=== PATIENT | male | born 2000 | race Caucasian/White ===

== ENCOUNTER 2021-06-13 15:54 | Emergency (ER) | payer OTHER, SELFPAY ==
[2021-06-13 15:59] VITALS: BP 126/74; PULSE 102; RESP 16; TEMP 36.8; O2SAT 98
--- NOTE | 2021-06-13 16:01 | ED.GENADUL_ITS ---
Discharge Plan Disposition Patient Disposition: HOME Condition: Good Discharge Details Clinical Impression: Acute shoulder pain Primary Care Provider: Bob Valencia ED Provider: Anushka Carcamo Home Meds and New Rx's Prescriptions: No Action No Known Home Meds RF: 0 Discharge Instructions Instructions: Shoulder Pain (ED) Additional Instructions: Your exam and imaging are reassuring today. Please encourage rest, ice, elevation. Tylenol and/or ibuprofen as needed for discomfort. Please avoid any heavy lifting while pain persist. Avoid activities that cause increased discomfort. If you develop fever/chills, increased pain or other new/worsening symptoms please seek care urgently once again. Otherwise, please follow-up with primary care in 2 weeks for reevaluation. Referrals: Bob Valencia, [facility] [Primary Care Provider] - Discharge Data Discharge Date/Time-TO BE ENTERED AT DEPARTURE: 06/13/21 18:26 Medical Decision Making Patient is a pleasant 20-year-old [id number]-xhnzybbl male presenting today with chief complaint of left shoulder pain. 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 After sitting down, noted some left anterior shoulder pain. Denies numbness or tingling. No known trauma. No previous issues with this shoulder. On exam, patient appears nontoxic. He has full range of motion of the left shoulder. Neer, Ashraf, Speed all without abnormality. 2+ distal pulses, neurovascularly intact. Axial nerve testing intact. No bony abnormality noted. No Amadou deformity. Patient minimal nonfocal discomfort anteriorly. Will give Tylenol and ibuprofen to help with discomfort. We did discuss risk and benefit of imaging. I have very low suspicion for bony abnormality. Patient would prefer to move forward with x-ray at this time. FINDINGS: Bones/joints: Scapular Y-view positioning is suboptimal. The humeral head may be slightly subluxed anteriorly. No displaced fracture. Soft tissues: Normal. IMPRESSION: Question mild anterior subluxation of the glenohumeral joint This does not correlate with patient's history or clinical exam findings. Will encourage rest, ice, elevation. Tylenol and ibuprofen as needed for discomfort. Abstain from activities that cause increased discomfort. Follow-up with primary care in 2 weeks for reevaluation. Return precautions discussed. His pain is improved after Tylenol and ibuprofen. All questions concerns were addressed and he is agreement this plan. HPI General Mode of arrival: ambulatory . Date/Time Provider Initiated Documentation: 06/13/21 16:01 . Limitations to Documentation: no limitations . Information obtained by: patient and RN notes reviewed . History of Present Illness 20 year old M presents to the emergency department with the chief complaint of left shoulder pain, described as moderate, with intensity rated at 6. Quality is described as aching, and is localized to the left. Patient reports no radiation. Related Data Home Medications Medication Instructions Recorded Confirmed Unknown [No Known Home Meds] 09/15/19 06/13/21 Allergies Allergy/AdvReac Type Severity Reaction Status Date / Time No Known Allergies Allergy Verified 05/26/21 15:01 Review of Systems Constitutional Constitutional: Reports as per HPI, Denies chills, Denies fever(s), Denies headache(s) and Denies weakness ENT Ears, Nose, Mouth, and Throat: Denies headache(s) Cardiovascular Cardiovascular: Reports as per HPI Respiratory Respiratory: Reports as per HPI and Denies cough Musculoskeletal Musculoskeletal: Reports as per HPI and Denies tingling Integumentary/Breasts Skin/Breast: Reports as per HPI, Denies rash and Denies wounds Neurologic Neurologic: Reports as per HPI, Denies headache(s), Denies tingling, Denies paresthesias and Denies weakness [facility] Medical History (Updated 06/13/21 @ 17:11 by JOE Allen) ADHD (attention deficit hyperactivity disorder) Developmental delay iep Surgical History Circumcision Family History (Updated 04/06/21 @ 09:27 by Lorena Kyle) Mother Mental disorder Asthma Father Diabetes Sister No problems noted. Sister No problems noted. Sister No problems noted. Social History Smoking/Tobacco Use Status: Never Second Hand Exposure: Yes Smoking risk assessment performed?: Yes Alcohol Intake: never Drug use: Never Substance use type: does not use Caregiver/Support person: Yes (Father) Household members: family Housing: house Education Level: high school Details: Senior--[employer] Do you need help understanding health information?: Often Pets and animals: Yes Pets and animals: cat(s) and dog(s) Sexually active: No Do you think of yourself as: straight/heterosexual Current gender identity: male How often do you talk on the phone with friends or family?: three or more times per week How often do you get together with friends or relatives?: once per week How often do you attend advent or mandaeism services?: decline to answer Do you belong to any clubs or organized social groups?: no Panel score (0-1 are the most socially isolated patients): 1 What type of physical activity do you participate in: weight lifting Duration: 15-30 minutes/day Frequency: 1-2 times per week Meg/Pentecostal: No preference Special meg needs: No Seatbelt use: always Helmet use: No 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 Working smoke detector in home: Yes Fire extinguisher in home: Yes Carbon monox detector in home: Yes Do you feel safe at home: Yes Do you feel safe in your relationship?: Yes Exam Const General: cooperative, healthy appearing, comfortable, no acute distress, well developed and well groomed Nutritional Appearance: average body habitus and well nourished Orientation: alert and awake Resp Effort & Inspection: normal respiratory effort, able to speak in complete sentences and no respiratory distress Cardio Rate: regular rate Rhythm: regular rhythm Skin General skin exam: no rashes or lesions noted Lesions: no lesions Rashes: no rashes Trauma: no lacerations or abrasions Neuro General: patient alert and patient awake Cognition: normal cognition Speech: speech normal Gait: normal gait Motor: muscle tone normal throughout Sensory Exam: no sensory deficits noted Extrem Left upper extremity: normal to inspection, full ROM, normal capillary refill, no joint enlargement, shoulder/upper arm Details: inspection abnormal, tenderness (anteriorly), axillary nerve sensory function normal and normal ROM; no swelling, no ecchymosis, no crepitus, no deformity and no unsual warmth and elbow/forearm Details: normal to inspection, normal ROM and distal pulses intact; no tenderness and no swelling; no cyanosis and no edema Psych Appearance: grossly normal and well kempt Mental Status: mental status grossly normal Speech and Movement: speech and movement normal
--- NOTE | 2021-06-13 16:15 | DI.RAD_ITS ---
Exam(s) XR SHOULDER LT COMPLETE 2+V EXAM: XR SHOULDER LT COMPLETE 2+V CLINICAL HISTORY: overuse injury, anterior pain. TECHNIQUE: 2D digital imaging was performed. COMPARISON: No exams were available for comparison FINDINGS: There is no evidence of fracture or dislocation or abnormal soft tissue calcifications. AC joint is not distracted. Subtle area of lucency in the greater trochanter is noted measuring approximately 2. 7 x 2.3 cm. This is nonexpansile. However, there is no sclerotic edge. Osseous glenoid unremarkabl e. AC joint unremarkable. IMPRESSION: There is an area of lucency in the greater trochanter. Possibly within normal limits but recommend f ollow-up MRI. DATA REPOSITORY: RADIATION DOSE DELIVERED:
[2021-06-13] MEDS: Acetaminophen 325 MG TAB 650 MG PO (16:32)
[2021-06-13] MEDS: Ibuprofen 600 MG TAB PO (16:33)
--- NOTE | 2021-06-13 17:05 | DI.VRAD_ITS ---
PROCEDURE INFORMATION: Exam: XR Left Shoulder Exam date and time: 06/13/2021 4:28 PM Age: 20 years old Clinical indication: Patient HX: Left shoulder pain TECHNIQUE: Imaging protocol: XR Left shoulder. Views: 2 or more views. COMPARISON: No relevant prior studies available. FINDINGS: Bones/joints: Scapular Y-view positioning is suboptimal. The humeral head may be slightly subluxed anteriorly. No displaced fracture. Soft tissues: Normal. IMPRESSION: Question mild anterior subluxation of the glenohumeral joint Dictated and Authenticated by: Doron Quiroz MD. Ordering:KYRIE Reveles MD
== END 2021-06-13 18:26 | disposition home or self-care (01) ==
PROVIDERS: Emergency Provider Physician Assistant; PCP Nurse Practitioner Family
DX: M25.512 Pain in left shoulder (principal); X50.0XXA Overexertion from strenuous movement or load, initial encounter; X50.3XXA Overexertion from repetitive movements, initial encounter; Y99.0 Civilian activity done for income or pay
CPT/HCPCS: 99283; 73030

== ENCOUNTER 2022-01-09 19:18 | Outpatient (REF) | payer MEDICAID, SELFPAY ==
[2022-01-17 08:13] LABS: Fungus Smear No Fungi Seen
== END 2022-01-09 19:19 | disposition home or self-care (01) ==
LOC: LBN 19:18
PROVIDERS: PCP Nurse Practitioner Family; Visit Provider Family Medicine
DX: K14.6 Glossodynia (principal)
CPT/HCPCS: 87102; 87206

== ENCOUNTER 2024-01-22 01:53 | Observation (INO) | payer MEDICAID, SELFPAY ==
[2024-01-22] VITALS (22 sets, daily range): BP systolic 92–154; BP diastolic 40–96; PULSE 67–88; RESP 15–19; TEMP 36.6–37.3; O2SAT 95–100; BMI 25.5
[2024-01-22 02:38] LABS: Abs Immature Grans 0.05 10^3/uL (0.0-0.06); Absolute Eosinophil Count 0.86 10^3/uL (0.0-0.7); Absolute Lymphocyte Count 3.41 10^3/uL (1.2-3.4); Absolute Monocyte Count 1.01 10^3/uL (0.1-0.8); Absolute Neutrophil Count 8.67 10^3/uL (1.2-6.7); Basophils % 0.6; Eosinophils % 6.1; HCT 46.8 % (40.0-50.0); HGB 16.4 g/dL (13.5-17.5); Immature Grans % 0.4; Lymphocytes % 24.2; MCH 29.4 pg (27.0-33.0); MCV 84 fL (80-95); MPV 11.3 fL (8.0-11.0); Monocytes % 7.2; Neutrophils % 61.5; Platelet Count 271 10^3/uL (130-400); RBC 5.58 10^6/uL (4.36-5.78); RDW 12.4 % (11.8-14.1); RDW-SD 37.5 fL; WBC 14.09 10^3/uL (4.4-10.8)
[2024-01-22 02:39] LABS: Absolute Basophil Count 0.08 10^3/uL (0.0-0.2)
[2024-01-22 02:41] LABS: Lactate 1.6 mmol/L (0.6-1.4)
[2024-01-22 02:47] LABS: Bilirubin Negative (Negative); Blood Negative (Negative); Clarity Clear (Clear); Glucose Negative (Negative); Ketones Negative (Negative); Leukocyte Esterase Negative (Negative); Nitrite Negative (Negative); Specific Gravity 1.025 (1.005-1.025); Urobilinogen 0.2 mg/dL (Up to 0.2)
[2024-01-22] MEDS: Normal Saline 1,000 ML 1000 ML IV (02:47)
--- NOTE | 2024-01-22 02:50 | ED.GENADUL_ITS ---
Discharge Plan Disposition Patient Disposition: Admit to [facility] Condition: Stable Discharge Details Clinical Impression: Acute appendicitis Admit Date/Time: 01/22/24 07:07 Admit Provider: Jaguar Mena Attending Provider: Jaguar Mena Primary Care Provider: Bob Valencia ED Provider: Obdulia Cooney Discharge Data Discharge Date/Time-TO BE ENTERED AT DEPARTURE: 01/22/24 07:27 Discharge Physician: Obdulia Cooney HPI General Mode of arrival: ambulatory . Date/Time Provider Initiated Documentation: 01/22/24 02:28 . Limitations to Documentation: other (Developmental delay) . Information obtained by: patient, family, RN notes reviewed and old records reviewed . HPI Narrative: Time seen was 2:50 AM in bed 7. The patient is a healthy 23-year-old with mild developmental delay who presents with right lower quadrant pain. The pain began about 5 hours prior to arrival. He states he was fine all day. The last thing he ate was bologna cheese and mayonnaise sandwich at 4 PM yesterday. He describes the pain as constant sharp and nonradiating. It was initially 7 out of 10 at triage but has increased to 9 out of 10. He is accompanied by his mother who offered him ibuprofen prior to arrival but he declined. He denies any change in his appetite. He did have some diarrhea the day before and his father gave him [id number] Imodium which helped. His last bowel movement was at 11 PM last night (after the pain had started), and he states it was normal. He denies any nausea or vomiting. He denies any dysuria or penile discharge. He has no prior history of abdominal surgeries. He does state that the pain is worse with movement and ambulation. No prior abdominal surgeries. Initially pain was 8 out of 10 located in the right lower quadrant without radiation. The patient is constant and aggravated by movement. Related Data Home Medications Medication Instructions Recorded Confirmed Unknown [No Known Home Meds] 09/15/19 01/22/24 Allergies Allergy/AdvReac Type Severity Reaction Status Date / Time No Known Allergies Allergy Verified 01/22/24 02:17 General Stated Complaint: Abd Prob JOSE: 3 Review of Systems Narrative: see hpi Exam Narrative Exam Narrative: The patient is a well-developed well-nourished male who walked in a slightly bent over holding his right lower quadrant. He appears to have some mild cognitive delay but answers questions appropriately. He is mildly hypertensive. He is not tachycardic tachypneic or febrile. He has a normal room air O2 sat of 99%. Const General: cooperative, healthy appearing, comfortable, no acute distress, well developed, well groomed and well hydrated Nutritional Appearance: average body habitus and well nourished Orientation: alert, awake and oriented x3 HENMT Head: normal to inspection, normocephalic and atraumatic Ears: hearing grossly normal bilaterally and external ears normal General nose exam: external nose normal, nares normal and no nasal discharge Face and sinus: normal facial exam, sinuses nontender and face symmetric Mouth: oral mucosae normal, lip normal, tongue normal, oropharynx normal, moist mucous membranes and other (Normal phonation. The patient is handling secretions.) Throat: posterior oropharynx normal and uvula midline Eyes General: appearance normal, both eyes and all related structures Eyelids: eyelids normal Conjunctivae: conjunctivae normal Sclera: sclerae normal Cornea: corneas normal Pupils: PERRL EOM: EOM intact bilaterally and No nystagmus Neck Neck: normal visual inspection, full ROM, no lymphadenopathy, no meningeal signs, trachea midline and supple Lymphatic: no lymphadenopathy noted Chest Chest: normal inspection of the chest Resp Effort & Inspection: normal respiratory effort, able to speak in complete sentences, no audible wheezes, no nasal flaring, no respiratory distress, no retractions, no stridor, not tachypneic, no tracheal deviation, no use of accessory muscles, No prolonged expiratory phase and other (Normal inspiratory to expiratory ratio.) Auscultation: clear to auscultation bilaterally, no rales, no rhonchi, no wheezes and no rubs Tactile Fremitus: tactile fremitus absent Cardio Jugular venous pressure: no JVD Palpation: normal PMI Rate: regular rate Rhythm: regular rhythm Heart Sounds: S1 normal, S2 normal, no gallops, no murmurs and no rubs Pulses: normal peripheral pulses GI Inspection: normal to inspection, no abdominal wall ecchymosis, non-distended, no incisions, no visible herniation, no visible pulsation and No visible peristalsis Palpation: soft, no hepatosplenomegaly, no guarding, no pulsatile masses and tender in the RLQ, at McBurney's point, with rebound tenderness and Rovsing's sign positive; obturator sign negative and psoas sign negative Auscultation: normal bowel sounds General: No CVA tenderness Male General Exam: Yes normal external exam Penis: normal penis Scrotum: scrotum normal Testes: normal Other: No hernias Back/Spine/Pelvis Back: no CVA tenderness and No back tenderness Cervical Spine: normal cervical lordosis, cervical ROM normal, No cervical muscular tenderness, No pain with cervical ROM, No cervical spinal tenderness and No step off deformity Thoracic/Lumbar Spine: thoracic and lumbar spine normal to inspection, No thoracic spinal tenderness and No lumbar spinal tenderness Pelvis: no pain with anterior-posterior compression and no pain with lateral compression Skin General skin exam: no rashes or lesions noted, turgor normal, no petechiae, no purpura and other (Skin is normal for ethnicity.) Lesions: no lesions Rashes: no rashes Trauma: no lacerations or abrasions Neuro General: patient alert, patient awake, patient oriented x3, moves all extremities, no meningeal signs, no focal motor deficits and CN's II-XI intact bilaterally Cranial Nerves: CN's II-XI intact bilaterally, PERRL, accommodation normal, EOM intact bilaterally, no nystagmus, facial strength normal, tongue midline, hearing normal and no nystagmus Cognition: normal cognition Speech: speech normal Motor: muscle tone normal throughout and strength 5/5 throughout Sensory Exam: no sensory deficits noted Pupils: Normal pupillary reactivity/response: bilateral Extrem General: normal to inspection, full ROM, capillary refill normal, no clubbing, cyanosis or edema and no calf tenderness Psych Appearance: grossly normal Affect: normal affect Attitude: cooperative Thought Process: normal Thought Content: normal Insight: insight good Judgment: judgment good Other: The patient appears to have capacity make medical decisions. Course 4:45 AM I have notified the patient and his mother as well as the surgeon, Dr. Lee of the patient's diagnosis of appendicitis. I have updated the patient. She is checking with the OR. She requested that he receive morphine for additional analgesic. I will start with 2 mg of IV morphine. Zofran was ordered prior to CT scan. The patient and his mother voiced understanding and agreement with plan to admit and anticipate appendectomy. The patient has been kept n.p.o. on IV fluids. Due to voice recognition software, sound alike and misspelled words may be contained in the documentation. Consultations Consultation #1: Dr. Lee general surgery please see above. Vital Signs Vital signs: Vital Signs Temperature 36.6 C 01/22/24 02:10 Pulse 88 01/22/24 02:10 Respiratory Rate 18 01/22/24 02:10 Blood Pressure 154/96 H 01/22/24 02:10 Pulse Oximetry 99 01/22/24 02:10 Temperature 36.6 C 01/22/24 02:10 Temperature Source Oral 01/22/24 02:10 Pulse 88 01/22/24 02:10 Respiratory Rate 18 01/22/24 02:10 Respiratory Effort Normal, Non-Labored 01/22/24 02:15 Blood Pressure 154/96 H 01/22/24 02:10 Blood Pressure Position Sitting 01/22/24 02:10 Pulse Oximetry 99 01/22/24 02:10 Oxygen Delivery Method Room Air 01/22/24 02:10 Oxygen Flow Rate 0 01/22/24 02:10 Pain Level 7 01/22/24 02:14 Lab/Test Results Lab/Test Results: Laboratory Tests Range/Units 01/22/24 02:28 WBC (4.4-10.8) 10^3/uL 14.09 H RBC (4.36-5.78) 10^6/uL 5.58 Hgb (13.5-17.5) g/dL 16.4 Hct (40.0-50.0) % 46.8 MCV (80-95) fL 84 MCH (27.0-33.0) pg 29.4 MCHC (32.0-36.0) % 35.0 RDW (11.8-14.1) % 12.4 Plt Count (130-400) 10^3/uL 271 MPV (8.0-11.0) fL 11.3 H Immature Gran % 0.4 Neutrophils % 61.5 Lymphocytes % 24.2 Monocytes % 7.2 Eosinophils % 6.1 Basophils % 0.6 Nucleated RBC % (0.0-0.3) % 0.0 Absolute Neutrophils (1.2-6.7) 10^3/uL 8.67 H Absolute Lymphocytes (1.2-3.4) 10^3/uL 3.41 H Absolute Monocytes (0.1-0.8) 10^3/uL 1.01 H Absolute Eosinophils (0.0-0.7) 10^3/uL 0.86 H Absolute Basophils (0.0-0.2) 10^3/uL 0.08 VBG Lactate (0.6-1.4) mmol/L 1.6 H Medical Decision Making This is a 23-year-old male who presents with several hours of right lower quadrant pain. My main concern is for appendicitis. He has a positive Rovsing sign. My plan is to give him IV Zosyn and IV acetaminophen and obtain a CT scan of the abdomen and pelvis with IV contrast. Will check a CBC for leukocytosis and left shift. We will check a comprehensive metabolic panel to check his electrolytes and renal function as well as his LFTs. I will also check a lipase and a urinalysis. He denies any penile discharge. Other considerations are mesenteric adenitis although he is a little bit old for this diagnosis which is more common in children. He has a normal exam. Other considerations are gastroenteritis, pancreatitis, volvulus or intussusception although he is not distended and is having normal bowel movements. Differential Diagnosis Differential Diagnosis: As per MDM above Medical Records Medical records reviewed: Yes I reviewed the patient's medical records. Imaging Data Radiologic Study: Imaging: CT Scan (Abdomen and pelvis) Radiologist's impression: vRad impression: 1. Uncomplicated appendicitis without evidence for perforation or abscess formation. Reactive right lower quadrant lymphadenopathy is noted. 2. Mild stenosis of the celiac axis as it passes under the median articular ligament with normal caliber distally and normal contrast opacification of the vessel distally. Correlate with signs and symptoms of median arcuate syndrome, as this may be normal anatomy for the patient. Lab Data Lab results reviewed: Yes I reviewed the patient's lab results. Lab results narrative: Leukocytosis, left shift, mild hypokalemia, elevated lactate at 1.6, normal renal function, mild hyperglycemia slight elevation of alk phos which could be normal at his age. Normal urinalysis Quality:SDOH Health Related Social Needs: No Data to Display Critical Care Time Critical Care Time Total Critical Care Time: 25 Attestation: This includes time at the bedside, review of medical records, discussion of results with the patient and consultation with general surgery. PFSH All Active Problems (Updated 01/22/24 @ 05:09 by Obdulia Cooney MD) Acute appendicitis (Acute) Acute shoulder pain (Acute) Bilateral knee pain (Acute) Abrasion (Acute) Developmental delay (Acute) iep Routine child health exam (Acute 03/24/13) Normal weight, pediatric, BMI 5th to 84th percentile for age (Acute 06/25/16) Attention deficit hyperactivity disorder (Acute 03/24/13) has IEP Medical History (Updated 01/22/24 @ 05:09 by Obdulia Cooney MD) ADHD (attention deficit hyperactivity disorder) Surgical History Circumcision Family History Mother Mental disorder Asthma Father Diabetes Sister No problems noted. Sister No problems noted. Sister No problems noted. Social History Smoking/Tobacco Use Status: Current every day Tobacco Type: e-cigarettes Second Hand Exposure: Yes Smoking risk assessment performed?: Yes Alcohol Intake: never Drug use: Occasionally Substance use type: marijuana Caregiver/Support person: Yes (Father) Household members: family Housing: other Education Level: high school Details: Senior--[employer] Do you need help understanding health information?: Often Pets and animals: Yes Pets and animals: cat(s) and dog(s) Sexually active: No Do you think of yourself as: straight/heterosexual Current gender identity: male How often do you talk on the phone with friends or family?: three or more times per week How often do you get together with friends or relatives?: once per week How often do you attend anglican or gnosticist services?: decline to answer Do you belong to any clubs or organized social groups?: no Panel score (0-1 are the most socially isolated patients): 1 What type of physical activity do you participate in: weight lifting Duration: 15-30 minutes/day Frequency: 1-2 times per week Meg/Buddhism: No preference Special meg needs: No Seatbelt use: always Helmet use: No 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
--- NOTE | 2024-01-22 03:00 | DI.CT_ITS ---
Exam(s) CT ABDOMEN PELVIS W EXAM: CT ABDOMEN PELVIS W CLINICAL HISTORY: rule out appy, RLQ pain. TECHNIQUE: Imaging Protocol: Axial computed tomography images with coronal and sagittal reformatted images were created and reviewed CONTRAST MATERIAL: Intravenous: Omnipaque-350 100cc Oral: None COMPARISON: No exams were available for comparison FINDINGS: VISUALIZED LUNG BASES: No nodules nor pleural effusions evident. ABDOMEN: There is no ascites. LIVER: There are no focal hepatic lesions evident. No dilated intrahepatic ducts. GALLBLADDER/BILIARY: No obvious gallbladder pathology. CBD is not dilated. PANCREAS: No evidence of pancreatic mass nor dilatation of the pancreatic duct. SPLEEN: Spleen is not enlarged. No obvious intrasplenic lesions. Splenic and portal veins are paten t. ADRENALS: There are no significant adrenal masses. KIDNEYS:No cysts evident. No solid renal masses. No calculi nor hydronephrosis.. ABDOMINAL AORTA: Abdominal aorta is not enlarged. LYMPH NODES:There is no retroperitoneal nor paraaortic adenopathy. ABDOMINAL WALL: No evidence of significant anterior abdominal wall nor inguinal hernia. GI: There is no evidence of bowel obstruction, free air, nor abscess. PELVIS: GI: Appendix is fluid-filled and dilated to 9 mm and exhibits some wall enhancement. There is some m ild fat stranding in the adjacent mesoappendix.Few slightly enlarged lymph nodes are noted in the mes oappendix which are most probably reactive. No evidence of rupture. No abscess. No free air. No b owel obstruction. LYMPH NODES: There is no intrapelvic nor inguinal adenopathy. REPRODUCTIVE: Prostate not enlarged. URINARY BLADDER: No calculi nor obvious masses evident OSSEOUS: No fractures and no significant osseous lesions. IMPRESSION: 1. Findings are consistent with acute appendicitis. No evidence of rupture at this time. A few slig htly prominent lymph nodes in the mesoappendix are noted which are most probably reactive. RADIATION DOSE DELIVERED: 925.22mGy.cm Total DLP DATA REPOSITORY: All CT scans at this facility are submitted to the National Radiology Data Registry (NRDR) Dose Index Registry (DIR) with the [employer] (ACR). RADIATION OPTIMIZATION: All CT scans at this facility use at least one of these dose optimization te chniques: automated exposure control; mA and/or kV adjustment per patient size (includes targeted exa ms where dose is matched to clinical indication); or iterative reconstruction.
[2024-01-22 03:06] LABS: ALT 41 U/L (16-63); AST 31 U/L (15-37); Albumin 4.4 g/dL (3.4-5.0); Alkaline Phosphatase 167 U/L (46-116); Anion Gap 9.6 mmol/L (3-11); BUN 12 mg/dL (7-18); Bilirubin, Total 0.3 mg/dL (0.2-1.0); CO2 28.4 mmol/L (21.0-32.0); CREATININE 1.1 mg/dL (0.70-1.30); Calcium 9.7 mg/dL (8.5-10.1); Chloride 104 mmol/L (98-107); Estimated GFR 97.34 (mL/min/1.73m2); Glucose 110 mg/dL (74-106); Lipase 28 U/L (16-77); Potassium 3.4 mmol/L (3.5-5.1); Sodium 142 mmol/L (136-145); Total Protein 8.1 g/dL (6.4-8.2)
[2024-01-22 03:07] LABS: Troponin I < 50 ng/L (< or =60)
[2024-01-22] MEDS: Omnipaque 350 MG/ML 100 ML BTL IJ (03:17)
[2024-01-22] MEDS: Normal Saline Flush 10 ML SYR IVP ×3 (03:18→21:38)
[2024-01-22] MEDS: Normal Saline - Diluent 50 ML VIAL IJ (03:19)
[2024-01-22] MEDS: PIPERACILLIN/TAZO 3.375 GM in Normal Saline 50 ML IVPB ×3 (03:49→15:50)
[2024-01-22] MEDS: ACETAMINOPHEN 1,000 MG/100 ML BTL 400 MG IVPB ×3 (03:49→21:05)
--- NOTE | 2024-01-22 04:36 | DI.VRAD_ITS ---
PROCEDURE INFORMATION: Exam: CT Abdomen And Pelvis With Contrast Exam date and time: 01/22/2024 3:29 AM Age: 23 years old Clinical indication: Abdominal pain; Localized; Right lower quadrant (rlq); Patient HX: Rlq pain TECHNIQUE: Imaging protocol: Computed tomography of the abdomen and pelvis with contrast. Radiation optimization: All CT scans at this facility use at least one of these dose optimization techniques: automated exposure control; mA and/or kV adjustment per patient size (includes targeted exams where dose is matched to clinical indication); or iterative reconstruction. Contrast material: OMNIPAQUE 350; Contrast volume: 100 ml; Contrast route: INTRAVENOUS (IV); COMPARISON: No relevant prior studies available. FINDINGS: Lungs: Bibasilar atelectasis. Heart: Base of heart is unremarkable as visualized. Liver: Normal. No mass. Gallbladder and bile ducts: Fold within the gallbladder fundus. Pancreas: Normal. No ductal dilation. Spleen: Subcentimeter splenule is noted (series 4, image 19). Adrenal glands: Normal. No mass. Kidneys and ureters: Normal. No hydronephrosis. Stomach and bowel: Unremarkable. No obstruction. No mucosal thickening. Appendix: The appendix is fluid-filled and dilated to 9.0 mm (series 6 image 37). There is circumferential fat stranding. There is enhancement of the rodriguez. There is additional finding of circumferential wall thickening. Intraperitoneal space: Unremarkable. No free air. No significant fluid collection. 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 Lymph nodes: Right lower quadrant reactive lymphadenopathy. Urinary bladder: Unremarkable as visualized. Reproductive: Unremarkable as visualized. Bones/joints: Unremarkable. No acute fracture. Soft tissues: Unremarkable. IMPRESSION: 1. Uncomplicated appendicitis without evidence for wall perforation or abscess formation. Reactive right lower quadrant lymphadenopathy is noted. 2. 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 Correlate with signs and symptoms median arcuate syndrome, as this may be normal anatomy for the patient.. Dictated and Authenticated by: Endy Amaral MD. Ordering:NOVA Steiner MD
[2024-01-22 05:36] LABS: Prothrombin Time 10.5 sec (9.1-11.1)
[2024-01-22] MEDS: MORPHine 10 MG/ML VIAL 2 MG IVP (05:49)
--- NOTE | 2024-01-22 07:02 | HPE_ITS ---
Date of service: 01/22/24 Time of Service: 07:25 Assessment and Plan Assessment and plan (1) Acute appendicitis: Status: Acute Assessment and plan: By history, and physical, and certainly by the CT scan, this seems most consistent with acute appendicitis. I explained that the traditional treatment is laparoscopic appendectomy, which I think is a great candidate for. I explained the risks and benefits of the procedure with him and his parents, I think they will have very good understanding of this. Will try to get him onto the operating room schedule as soon as we can today. In the meantime, we will continue with intravenous analgesia, and broad-spectrum antibiotics. History of Present Illness History of Present Illness Chief Complaint: Abdominal pain Narrative: Alistair is 23 years old. He comes to the emergency department after acute onset of abdominal pain sometime around 9 or 10:00 last night. He describes it as sharp and stabbing on the right lower portion of his abdomen. He has never experienced it before. He came to the emergency department, and was found to have leukocytosis. He underwent a CT of the abdomen pelvis that demonstrated acute appendicitis. He has no significant past medical history. He send no significant abdominal surgeries in the past. Review of Systems Constitutional Constitutional: Reports fatigue, Denies fever(s), Reports lethargy and Reports poor appetite Eyes Eyes: Reports system reviewed and no additional complaints, except as documented ENT Ears, Nose, Mouth, and Throat: Reports system reviewed and no additional complaints, except as documented Cardiovascular Cardiovascular: Denies chest pain and Denies dyspnea Respiratory Respiratory: Denies chest congestion, Denies cough and Denies dyspnea Gastrointestinal Gastrointestinal: Reports abdominal pain, Denies change in bowel habits, Denies nausea and Denies vomiting Musculoskeletal Musculoskeletal: Reports system reviewed and no additional complaints, except as documented Neurologic Neurologic: Reports system reviewed and no additional complaints, except as documented Psychiatric Psychiatric: Reports system reviewed and no additional complaints, except as documented Endocrine Endocrine: Reports fatigue Hematologic/Lymphatic Hematologic/Lymphatic: Denies easy bleeding and Denies easy bruising PFSH All Active Problems (Updated 01/22/24 @ 05:09 by Obdulia Cooney MD) Acute appendicitis (Acute) Acute shoulder pain (Acute) Bilateral knee pain (Acute) Abrasion (Acute) Developmental delay (Acute) iep Routine child health exam (Acute 03/24/13) Normal weight, pediatric, BMI 5th to 84th percentile for age (Acute 06/25/16) Attention deficit hyperactivity disorder (Acute 03/24/13) has IEP Medical History (Updated 01/22/24 @ 05:09 by Obdulia Cooney MD) ADHD (attention deficit hyperactivity disorder) Surgical History Circumcision Family History Mother Mental disorder Asthma Father Diabetes Sister No problems noted. Sister No problems noted. Sister No problems noted. Social History Smoking/Tobacco Use Status: Current every day Tobacco Type: e-cigarettes Second Hand Exposure: Yes Smoking risk assessment performed?: Yes Alcohol Intake: never Drug use: Occasionally Substance use type: marijuana Caregiver/Support person: Yes (Father) Household members: family Housing: house Education Level: high school Details: Senior--[employer] Do you need help understanding health information?: Often Pets and animals: Yes Pets and animals: cat(s) and dog(s) Sexually active: No Do you think of yourself as: straight/heterosexual Current gender identity: male How often do you talk on the phone with friends or family?: three or more times per week How often do you get together with friends or relatives?: once per week How often do you attend religious or islam services?: decline to answer Do you belong to any clubs or organized social groups?: no Panel score (0-1 are the most socially isolated patients): 1 What type of physical activity do you participate in: weight lifting Duration: 15-30 minutes/day Frequency: 1-2 times per week Meg/Confucianist: No preference Special meg needs: No Seatbelt use: always Helmet use: No Drive intox or ride w/intox recycler forklift driver truck driver: No Working smoke detector in home: Yes Fire extinguisher in home: Yes Carbon monox detector in home: Yes Do you feel safe at home: Yes Do you feel safe in your relationship?: Yes Meds Allergies and Home Medications Allergies Allergy/AdvReac Type Severity Reaction Status Date / Time No Known Allergies Allergy Verified 01/22/24 02:17 Home Medications Medication Instructions Recorded Confirmed Type Unknown [No Known Home Meds] 09/15/19 01/22/24 History Exam Const General: cooperative and comfortable Nutritional Appearance: average body habitus Orientation: alert, awake and oriented x3 HENMT Head: normal to inspection Resp Effort & Inspection: normal respiratory effort Auscultation: clear to auscultation bilaterally Cardio Rate: regular rate Rhythm: regular rhythm Heart Sounds: S1 normal and S2 normal GI Inspection: normal to inspection Palpation: soft and tender in the RLQ Percussion: normal to percussion Auscultation: normal bowel sounds Results Labs 01/22/24 02:28 01/22/24 02:28 Labs: Laboratory Results - last 24 hr 01/22/24 02:28 WBC 14.09 H RBC 5.58 Hgb 16.4 Hct 46.8 MCV 84 MCH 29.4 MCHC 35.0 RDW 12.4 Plt Count 271 MPV 11.3 H Immature Gran % 0.4 Neutrophils % 61.5 Lymphocytes % 24.2 Monocytes % 7.2 Eosinophils % 6.1 Basophils % 0.6 Nucleated RBC % 0.0 Absolute Neutrophils 8.67 H Absolute Lymphocytes 3.41 H Absolute Monocytes 1.01 H Absolute Eosinophils 0.86 H Absolute Basophils 0.08 PT 10.5 INR 1.0 VBG Lactate 1.6 H Sodium 142 Potassium 3.4 L Chloride 104 Carbon Dioxide 28.4 Anion Gap 9.6 BUN 12 Creatinine 1.1 Est GFR (CKD-EPI 2020) 97.34 Glucose 110 H Calcium 9.7 Magnesium 2.0 Total Bilirubin 0.3 AST 31 ALT 41 Alkaline Phosphatase 167 H Troponin I < 50 Total Protein 8.1 Albumin 4.4 Lipase 28 Urine Color Yellow Urine Clarity Clear Urine pH 6.0 Ur Specific [place] 1.025 Urine Protein Negative Urine Ketones Negative Urine Blood Negative Urine Nitrite Negative Urine Bilirubin Negative Urine Urobilinogen 0.2 Ur Leukocyte Esterase Negative Urine Glucose Negative Last Vital Signs Temp 97.8 F 01/22/24 02:10 Pulse 75 01/22/24 06:16 Resp 18 01/22/24 02:10 BP 123/66 01/22/24 06:16 Pulse Ox 97 01/22/24 06:20 Time Spent Time spent with Patient: <40 minutes Time was spent: preparing to see the patient(eg.review tests), referring, communicating with other health career development coordinator/teacher, indepentently interpreting results and counseling the patient
[2024-01-22] MEDS: Enoxaparin 40 MG/0.4 ML SYR SC (09:55)
[2024-01-22] MEDS: MORPHine 2 MG/ML SYR IVP (09:55)
--- NOTE | 2024-01-22 14:13 | ANES.PREOP_ITS ---
General Info Date of Service Date Performed: 01/22/24 Height: 5 ft 10 in Weight: 80.739 kg Body Mass Index (BMI): 25.5 Surgical Procedure: Operation Date: 01/22/24 15:25 Proposed Procedure Side Surgeon p Appendectomy Laparoscopic Jaguar Mena MD Meds Allergies and Home Medications Allergies Allergy/AdvReac Type Severity Reaction Status Date / Time No Known Allergies Allergy Verified 01/22/24 02:17 Home Medication Medication Instructions Recorded Unknown [No Known Home Meds] 09/15/19 Current Visit Medications: Current Medications Generic Name Dose Route Start Last Admin Trade Name Freq PRN Reason Stop Dose Admin Enoxaparin Sodium 40 mg 01/22/24 10:00 01/22/24 09:55 Enoxaparin 40 Mg/0.4 Ml Syr SC 40 mg Q24H JERMAIEN Administration Hydromorphone HCl 1 mg 01/22/24 08:50 Hydromorphone 2 Mg/Ml Syr IVP Q6H PRN PRN Ringer's Solution 1,000 mls @ 75 mls/hr 01/22/24 08:50 IV INFUSION JERMAINE Acetaminophen 1,000 mg in 100 mls @ 400 mls/hr 01/22/24 08:00 01/22/24 11:06 Ofirmev IVPB 400 mls/hr Q6H JERMAINE Administration Piperacillin Sod/Tazobactam 50 mls @ 100 mls/hr 01/22/24 10:00 01/22/24 11:35 Sod 3.375 gm/ Sodium Chloride IVPB Infused Q6H JERMAINE Infusion IV Miscellaneous Supplies 1 each 01/22/24 08:50 Iv Access IV DIRECTED JERMAINE Morphine Sulfate 2 mg 01/22/24 08:50 01/22/24 09:55 Morphine 2 Mg/Ml Syr IVP 2 mg Q1H PRN PRN Administration Ondansetron HCl 4 mg 01/22/24 08:50 Ondansetron 4 Mg/2 Ml Vial IVP Q4H PRN PRN Sodium Chloride 0 ml 01/22/24 08:50 Normal Saline Flush 10 Ml Syr IVP PRN PRN Sodium Chloride 0 ml 01/22/24 08:50 01/22/24 11:07 Normal Saline Flush 10 Ml Syr IVP 10 ml BID JERMAINE Administration Sodium Chloride 0 ml 01/22/24 08:50 Normal Saline 10 Ml Vial IJ DIRECTED PRN PFSH Active Problems Active Problems: Problem Status Onset Code Acute appendicitis K35.80 Acute shoulder pain M25.519 Bilateral knee pain M25.561, M25.562 Abrasion T14.8XXA Developmental delay R62.50 Routine child health exam 03/24/13 Z00.129 Normal weight, pediatric, BMI 5th to 84th percentile for age 0706/25/16 Z68.52 Attention deficit hyperactivity disorder 03/24/13 F90.9 Medical History Medical History (Updated 01/22/24 @ 05:09 by Obdulia Cooney MD) ADHD (attention deficit hyperactivity disorder) Surgical History Surgical History Circumcision Tobacco Smoking/Tobacco Use Status: Current every day Tobacco Type: e-cigarettes Passive smoking exposure: Yes Second hand exposure: Yes Alcohol Alcohol Intake: never Substance Use Substance use: Occasionally Substance use type: marijuana Vital Signs and Lab Results Vital Signs Most Recent Vital Signs in EMR: Most Recent Vital Signs Temp Pulse Resp BP Pulse Ox 36.7 C 69 16 128/78 96 01/22/24 08:56 01/22/24 08:56 01/22/24 08:56 01/22/24 08:56 01/22/24 08:56 Lab Results 01/22/24 02:28 01/22/24 02:28 Blood Type / Crossmatch: 2 No Data to Display Complete Blood Count: 2 White Blood Count 14.09 10^3/uL (4.4-10.8) H 01/22/24 02:28 Red Blood Count 5.58 10^6/uL (4.36-5.78) 01/22/24 02:28 Hemoglobin 16.4 g/dL (13.5-17.5) 01/22/24 02:28 Hematocrit 46.8 % (40.0-50.0) 01/22/24 02:28 Platelet Count 271 10^3/uL (130-400) 01/22/24 02:28 Venous Blood Lactate 1.6 mmol/L (0.6-1.4) H 01/22/24 02:28 Complete Metabolic Panel: 2 Sodium 142 mmol/L (136-145) 01/22/24 02:28 Potassium 3.4 mmol/L (3.5-5.1) L 01/22/24 02:28 Chloride 104 mmol/L (98-107) 01/22/24 02:28 Carbon Dioxide 28.4 mmol/L (21.0-32.0) 01/22/24 02:28 BUN 12 mg/dL (7-18) 01/22/24 02:28 Creatinine 1.1 mg/dL (0.70-1.30) 01/22/24 02:28 Est GFR (CKD-EPI 2020) 97.34 (mL/min/1.73m2) 01/22/24 02:28 Magnesium 2.0 mg/dL (1.8-2.4) 01/22/24 02:28 Calcium 9.7 mg/dL (8.5-10.1) 01/22/24 02:28 Albumin 4.4 g/dL (3.4-5.0) 01/22/24 02:28 Glucose 110 mg/dL (74-106) H 01/22/24 02:28 Liver Function Panel: 2 Alanine Aminotransferase (ALT/SGPT) 41 U/L (16-63) 01/22/24 02: 28 Aspartate Amino Transf (AST/SGOT) 31 U/L (15-37) 01/22/24 02:28 Coagulation Panel: 2 INR International Normalized Ratio 1.0 (0.9-1.1) 01/22/24 02:2 8 Prothrombin Time 10.5 sec (9.1-11.1) 01/22/24 02:28 Cardiac Panel: 2 Troponin I < 50 ng/L (< or =60) 01/22/24 Arterial Blood Gas: 2 No Data to Display Venous Blood Gas: 2 No Data to Display Pancreas Panel: 2 Lipase 28 U/L (16-77) 01/22/24 02:28 Thyroid Panel: 2 No Data to Display Infectious Disease: 2 No Data to Display Blood Cultures: 2 No Data to Display Toxicology Panel: 2 No Data to Display Anesthesia Assessment and Plan Anesthesia History Personal History: No History of Anesthesia Complications Family History: No Family History of Anesthesia Complications Exercise Tolerance Exercise Tolerance: Metabolic Equivalents>4 Pertinent Negatives Pertinent Negatives: No Symptoms of GERD Cardiac & Pulmonary Exam Cardiac Exam: Normal S1/S2 Heart Sounds Pulmonary Exam: Clear Bilateral Breath Sounds Implantable Cardiac Device Does patient have a Pacemaker or an ICD?: No Airway Exam Known Difficult Airway: No Mallampati Class: 3 Mouth Opening: Narrow (< 3cm) Thyromental Distance: Greater than 3 cm Facial Hair: Full Fuller Neck Range of Motion: Full ROM Neck Circumference: Normal Teeth Condition: Normal Dentition ASA Classification ASA Score: ASA 2 Emergency Case?: No NPO Status NPO Status: NPO Clears >2 hours, Solids >8 hours Anesthesia Plan Resuscitation Status: Full Code Anesthesia Technique: General Anesthesia Airway Planned: Endotracheal Tube Monitors Used: Standard Monitors
[2024-01-22] MEDS: Lactated Ringers 1,000 ML 75 ML IV (15:38)
--- NOTE | 2024-01-22 15:46 | NUR.NOTE ---
brought pt to OR for lap appy, report given. Nursing Note:
--- NOTE | 2024-01-22 16:32 | APP_PTH ---
PATIENT: Alistair Mcmahon LOC: U#:[id number] AGE/SX: 23/M ROOM: 215 RE01/22/[address]: Jaguar Mena MD : 2000 BED: A DIS: 01/23/2024 SPEC #: [id number] RECD: 01/22/24 17:24 STATUS: PÉREZ REQ #: [id number] LEONOR: 01/22/24 16:[address]: Jaguar Mena DEPT: Surgical Specimen RECD BY: Moira Cole ENTERED: 01/22/24 17:25 SP TYPE: Appendix OTHR DR: Bob Valencia, KEM Tissues: 1 - APPENDIX NOT INCIDENTAL Procedures: GROSS AND MICRO LEVEL 3 Comments: [id number]
--- NOTE | 2024-01-22 16:39 | W.PM.OP ---
Date of service: 01/22/24 Time of Service: 16:39 Operative Note Operative Note DATE OF PROCEDURE: 01/22/24 PRE-OP DIAGNOSIS: Acute appendicitis POST-OP DIAGNOSIS: same PROCEDURE: Laparoscopic appendectomy SURGEON: Jaguar Mena VENETIAN BLIND MACHINE OPERATOR: Benton Lee ANESTHESIA TYPE: Local By Surgeon and General LMA/ETT Refer to Anesthesia Record ESTIMATED BLOOD LOSS: 25 PATHOLOGY: other (Appendix) COMPLICATIONS: None Patient was transported to: PACU Patient's condition: stable Indications: Alistair is a 23-year-old male with acute appendicitis. Findings: Acute appendicitis Procedure Description: After the induction of general anesthesia, I prepped and draped the anterior abdominal wall in the usual fashion. Next, I made an umbilical incision. I opened the fascia under direct vision. Using Vicryl stitches, I then affixed a 12 mm operating port to the umbilical fascia. I began insufflated the peritoneal cavity. Next, I inserted a 5 mm scope and examine the underlying tissue. There was no evidence of any trauma from the insertion. Next, with the assistance of the laparoscope, I placed 5 mm port in the left lower quadrant and suprapubic position. I then moved the scope into the left lower quadrant, and positioned the patient with some Trendelenburg and left side down. I started by examining the area of the right lower quadrant. The cecum was a little bit redundant, but with gentle retraction cephalad, I was able to identify the convergence of the tenia at the base of the appendix. The base appeared healthy. However, the appendix coursed laterally slightly around itself onto the right pelvic sidewall. The tip was quite inflamed. With gentle dissection, I was able to elevate the tip of the appendix and start to identify the mesoappendix. Because of the severity of the inflammation here, however, I felt the safest thing in terms of division of the mesoappendix was to work from the base of the appendix side. Therefore, I gently developed a window in the mesoappendix right along the healthy portion of the appendiceal base. Next, using an Endo ALIA stapler, I divided the base of the appendix with a healthy cuff of cecum. I then dissected down towards the tip dividing the mesoappendix with sequential fires of the LigaSure. Great care was taken to stay well close to the appendix to avoid any injury to the adjacent cecum or the retroperitoneum. With the mesoappendix completely divided, the specimen was placed in an Endo Catch bag. The surgical site was carefully examined. It was suctioned clean. The staple line was healthy appearing, and there was no evidence of any bleeding. Next, under the direct vision of the laparoscope I removed the left lower quadrant port in the suprapubic port. Both were hemostatic. I then removed the umbilical port site and the appendix in the bag. Another stitch was used to fully close the umbilical fascia. The overlying skin and soft tissues were irrigated, and the skin was closed with subcuticular absorbable suture. Band-Aids were applied, the patient was allowed to awaken from anesthesia and transferred to the recovery unit.
[2024-01-22] MEDS: Bupivacaine 0.25% Pres-Free 30 ML VIAL (16:43)
--- NOTE | 2024-01-22 17:48 | W.ANESPOSTOP ---
Postoperative Evaluation Date, Time and Location Date Performed: 01/22/24 Time Performed: 17:48 Patient Location: PACU Vital Signs Most Recent Imported Vital Signs: Most Recent Vital Signs Temp Pulse Resp BP Pulse Ox 37.0 C 74 15 101/52 L 95 01/22/24 17:35 01/22/24 17:35 01/22/24 17:35 01/22/24 17:35 01/22/24 17:35 Pain Score Most Recent Pain Score: Most Recent Pain Score Pain Level 0 01/22/24 17:35 Assessment Mental Status: Arousable with meaningful communication Airway and Respiratory Function: Patent airway with normal (patient baseline) respiratory exam Cardiovascular Function: Hemodynamically Stable Hydration Status: Adequately Hydrated Nausea & Vomiting: No Nausea or Vomiting Pain: Pt. Denies Any Pain Peripheral Nerve Block: Patient did not receive a nerve block
[2024-01-23] MEDS: ACETAMINOPHEN 1,000 MG/100 ML BTL 400 MG IVPB (03:29)
[2024-01-23 08:17] VITALS: BP 130/71; PULSE 78; RESP 15; TEMP 36.3; O2SAT 96
[2024-01-23] MEDS: Normal Saline Flush 10 ML SYR IVP (08:22)
--- NOTE | 2024-01-23 08:57 | W.PM.PROGNOT ---
Date of Service Date of service: 01/23/24 Time of Service: 08:57 Assessment and Plan Assessment and plan (1) Acute appendicitis: Status: Acute Assessment and plan: POD #1 Tolerating regular diet No Pain (+) BMs D/C home 2 week follow up with surgical office. Subjective Subjective Interval history since last seen: patient reports that he is feeling well. denies any abdominal pain, nausea or vomiting. Exam Const General: cooperative, healthy appearing and comfortable Orientation: alert and oriented x3 Resp Effort & Inspection: normal respiratory effort, no audible wheezes and no cough GI Inspection: normal to inspection Palpation: soft, no guarding and nontender Other: Band-aids in place over incisions. No erythema, swelling or induration noted. Objective Last Vital Signs Temp 36.3 C L 01/23/24 08:17 Pulse 78 01/23/24 08:17 Resp 15 01/23/24 08:17 BP 130/71 01/23/24 08:17 Pulse Ox 96 01/23/24 08:17 Time Spent with Patient Time Spent with Patient: <25 minutes Time was spent: preparing to see the patient(eg.review tests), indepentently interpreting results and counseling the patient
== END 2024-01-23 11:48 | disposition home or self-care (01) ==
LOC: ER 07:36 → MS 08:44
PROVIDERS: Admitting Provider Surgery; Emergency Provider Emergency Medicine Emergency Medical Services; PCP Nurse Practitioner Family; Visit Provider Surgery
PROC: 0DTJ4ZZ Resection of Appendix, Percutaneous Endoscopic Approach (ICD-10-PCS; CPT 44970; principal; 2024-01-22 15:15)
DX: K35.80 Unspecified acute appendicitis (principal); F90.9 Attention-deficit hyperactivity disorder, unspecified type; F17.290 Nicotine dependence, other tobacco product, uncomplicated
CPT/HCPCS: 44970; 36415; 80053; 83690; 96361; 96365; 96368; 96374; 96375; 99285; J1650; 74177; 81003; 83605; 83735; 84484; 85025; 85610; 88304; G0378; J0131; J0665; J1805; J1885; J2001; J2270; J2543; J2704; J3490

== ENCOUNTER 2024-10-29 14:34 | Emergency (ER) | payer MEDICAID, SELFPAY ==
[2024-10-29 14:37] VITALS: BP 150/84; PULSE 99; RESP 18; TEMP 36.4; O2SAT 98
--- NOTE | 2024-10-29 14:40 | ED.GENADUL_ITS ---
Discharge Plan Disposition Patient Disposition: Home Discharge Details Clinical Impression: Laceration of left palm Primary Care Provider: Bob Valencia ED Provider: Francisco Lei Home Meds and New Rx's Prescriptions: No Action No Known Home Meds Discharge Instructions Instructions: Laceration Repair With Stitches ED Additional Instructions: You were seen in the emergency department for your left palm laceration laceration which was closed with [ ] sutures that will need to be removed in 7 to 10 days. As we discussed, please keep your wound clean, dry and covered. Please do not soak in a tub, swim or engage in any activities which could introduce dirt into your wound. You may return to the emergency department, go to urgent care or go to your primary care provider in 7 to 10 days to have your stitches removed. As we discussed if you develop any foul-smelling drainage fevers streaking signs of infection or have any other concerns please return to the emergency department. For your pain please take medications as follows: 1. Take acetaminophen (Tylenol), 1,000 mg (two 500 mg tabs) every 6 hours [2. Take ibuprofen (Advil), 400 mg every 6 hours.] Stand Alone Forms: Work Release HPI General Date/Time Provider Initiated Documentation: 10/29/24 14:40 . HPI Narrative: MDM This is an overall very well-appearing afebrile and not tachycardic [id number] male with left palmar superficial laceration which violates the subcutaneous tissue and will require primary closure. No fluctuance to suggest abscess. No pain out of proportion to suggest necrotizing soft tissue infection. Intact sensation and motor function in the left hand across the radial, median, and ulnar nerve distribution so I am not concerned for ligamentous injury. Given no blunt trauma I am not suspicious for osseous abnormality so did not feel that the patient required x-rays. Will update tetanus status. See procedure note concerning laceration repair. I provided the patient a removable wrist brace to protect his hand given his lacerations on his dominant left hand. 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 Will teen counselor patient on return to the ED for worsening signs of infection fevers chills and foul-smelling drainage. HPI This is a previously healthy [id number] 23-year-old male not on any home medications up-to-date with immunizations arrived to the emergency department via private vehicle with his father with left palm laceration. Patient was reportedly opening a package with his knife. He inadvertently cut his left palm with his knife. He did not lose consciousness. He has not been nauseous nor vomiting. He was able to control the bleeding at home. He was in his usual state of health earlier today. He is having no limitations in range of motion t o his left hand. Exam General: Well-appearing in no acute distress speaking in complete sentences. Head: Normocephalic, atraumatic. Eye: Extraocular eye movements intact. No conjunctival injection. No scleral icterus. Ear, nose, mouth, throat: Grossly normal inspection. Normal voice, handling secretions normally. Neck: Trachea midline. Cardiovascular: Well-perfused distal extremities. Respiratory: Nonlabored respiration. Gastrointestinal: Nondistended abdomen. Musculoskeletal: On the palmar aspect of the left hand there is an approximately 4 cm laceration that violates the subcutaneous tissue that has some mild venous oozing. Sensation and motion intact in the left hand across the radial, median and ulnar nerve distributions. Cap refill less than 2 seconds in the left hand. 2+ left cap refill. Sensation intact across that recurrent median nerve in the left thumb. Skin: Normal for age and race, grossly normal temperature and turgor. No acute rash. Neurologic: Alert and appropriate, no apparent acute deficits. Psychiatric: Mood and manner are appropriate. Grooming and personal hygiene are appropriate. Related Data Home Medications ?Medication ?Instructions ?Recorded ?Confirmed Unknown [No Known Home Meds] 09/15/19 10/29/24 Allergies Allergy/AdvReac Type Severity Reaction Status Date / Time No Known Allergies Allergy Verified 10/29/24 14:40 General Stated Complaint: Laceration JOSE: 3 Course Vital Signs Vital signs: Vital Signs Temperature 36.4 C L 10/29/24 14:37 Pulse 99 H 10/29/24 14:37 Respiratory Rate 18 10/29/24 14:37 Blood Pressure 150/84 H 10/29/24 14:37 Pulse Oximetry 98 10/29/24 14:37 Temperature 36.4 C L 10/29/24 14:37 Temperature Source Oral 10/29/24 14:37 Pulse 99 H 10/29/24 14:37 Respiratory Rate 18 10/29/24 14:37 Blood Pressure 150/84 H 10/29/24 14:37 Blood Pressure Position Sitting 10/29/24 14:37 Pulse Oximetry 98 10/29/24 14:37 Oxygen Delivery Method Room Air 10/29/24 14:37 Oxygen Flow Rate 0 10/29/24 14:37 Procedures Laceration Laceration 1: Site: hand Side (If applicable): left Size (cm): 4 Description: linear Depth: simple, single layer Local anesthetic: Lidocaine 1%, with Epi and LET(lidocaine epinephrine tetracaine) Amount of anesthesia used (mL): 5 Pre-repair: wound explored, irrigated extensively and deep structures intact Skin layer closed with: nylon Size (cm): 5-0 (Prolene) Number of sutures: 7 Technique: simple, interrupted and other (Patient placed in a removable wrist brace for protection of laceration which was dressed by nursing) Medical Decision Making Quality:SDOH Health Related Social Needs: No Data to Display PFSH All Active Problems (Updated 10/29/24 @ 15:28 by Francisco Lei MD) Laceration of left palm (Acute) Acute shoulder pain (Acute) Bilateral knee pain (Acute) Abrasion (Acute) Developmental delay (Acute) iep Routine child health exam (Acute 03/24/13) Normal weight, pediatric, BMI 5th to 84th percentile for age (Acute 06/25/16) Attention deficit hyperactivity disorder (Acute 03/24/13) has IEP Medical History (Updated 10/29/24 @ 15:28 by Francisco Lei MD) ADHD (attention deficit hyperactivity disorder) Surgical History Circumcision Family History Mother Mental disorder Asthma Father Diabetes Sister No problems noted. Sister No problems noted. Sister No problems noted. Social History Smoking/Tobacco Use Status: Current every day Tobacco Type: e-cigarettes Second Hand Exposure: Yes Smoking risk assessment performed?: Yes Alcohol Intake: never Drug use: Occasionally Substance use type: marijuana Caregiver/Support person: Yes (Father) Household members: family Housing: other Education Level: high school Details: Senior--[employer] Do you need help understanding health information?: Often Pets and animals: Yes Pets and animals: cat(s) and dog(s) Sexually active: No Do you think of yourself as: straight/heterosexual Current gender identity: male How often do you talk on the phone with friends or family?: three or more times per week How often do you get together with friends or relatives?: once per week How often do you attend religion or yazidism services?: decline to answer Do you belong to any clubs or organized social groups?: no Panel score (0-1 are the most socially isolated patients): 1 What type of physical activity do you participate in: weight lifting Duration: 15-30 minutes/day Frequency: 1-2 times per week Meg/Yazdanism: No preference Special meg needs: No Seatbelt use: always Helmet use: No Drive intox or ride w/intox front loader residential driver: No Working smoke detector in home: Yes Fire extinguisher in home: Yes Carbon monox detector in home: Yes Do you feel safe at home: Yes Do you feel safe in your relationship?: Yes
[2024-10-29] MEDS: Lidocaine/Epinephri/Tetracaine Topical Gel 3 ML TP (14:58)
[2024-10-29] MEDS: Acetaminophen 500 MG TAB 1000 MG PO (14:59)
[2024-10-29] MEDS: Ibuprofen 600 MG TAB PO (15:00)
[2024-10-29] MEDS: Lidocaine 2% Pres-Free W/EPI 1/200,000 20 ML VIAL (15:11)
[2024-10-29] MEDS: Diph,Pertuss(Acell),Tet Vac/Pf 0.5 ML SYR IM (15:14)
[2024-10-29 15:56] VITALS: BP 132/60; PULSE 78; O2SAT 98
== END 2024-10-29 16:03 | disposition home or self-care (01) ==
LOC: ER 16:05
PROVIDERS: Emergency Provider Emergency Medicine; PCP Nurse Practitioner Family
DX: W26.0XXA Contact with knife, initial encounter; S61.412A Laceration without foreign body of left hand, initial encounter
CPT/HCPCS: 12002; 90715; 96372; J2004

== ENCOUNTER 2024-11-09 09:23 | Emergency (ER) | payer MEDICAID, SELFPAY ==
[2024-11-09 09:31] VITALS: BP 123/76; PULSE 73; RESP 14; TEMP 37; O2SAT 98
--- NOTE | 2024-11-09 09:39 | ED.GENADUL_ITS ---
Discharge Plan Disposition Patient Disposition: Home Discharge Details Clinical Impression: Encounter for removal of sutures Primary Care Provider: Bob Valencia ED Provider: Francisco Lei Home Meds and New Rx's Prescriptions: No Action No Known Home Meds Discharge Instructions Instructions: Stitches Removal Additional Instructions: You are seen in the emergency department for your stitches which were removed. Please return to the emergency department if you develop fevers or streaking signs of infection. For your pain please take medications as follows: 1. Take acetaminophen (Tylenol), 1,000 mg (two 500 mg tabs) every 6 hours [2. Take ibuprofen (Advil), 400 mg every 6 hours.] HPI General Date/Time Provider Initiated Documentation: 11/09/24 09:39 . HPI Narrative: MDM This is an overall very well-appearing normothermic and not tachycardic [age]-year-old male with 7 stitches that were removed from his left hand. Sensation motor function intact in left hand. No streaking signs of infection to suggest benefit from antibiotics. Patient and I discussed that his wound is at the weakest now without the sutures and that he should return if his wound opens up again. He understands this return occasions and was discharged with empiric trial of expectant outpatient management. Sutures removed by emergency department RN Sofya. HPI This is a a hdtf-[id number]-lmmrgyes male arrived to the emergency department via private vehicle in setting of sutures that need removal from his left palm. Sutures were placed 11 days ago. No fevers or foul-smelling drainage. Exam General: Well-appearing in no acute distress speaking in complete sentences. Head: Normocephalic, atraumatic. Eye: Extraocular eye movements intact. No conjunctival injection. No scleral icterus. Ear, nose, mouth, throat: Grossly normal inspection. Normal voice, handling secretions normally. Neck: Trachea midline. Cardiovascular: Well-perfused distal extremities. Respiratory: Nonlabored respiration. Gastrointestinal: Nondistended abdomen. Musculoskeletal: On the palmar aspect of the left hand there are 7 sutures closing a laceration. Sensation motor function intact in the entire left hand. 2+ left radial pulse. Skin: Normal for age and race, grossly normal temperature and turgor. No acute rash. Neurologic: Alert and appropriate, no apparent acute deficits. Psychiatric: Mood and manner are appropriate. Grooming and personal hygiene are appropriate. Related Data Home Medications ?Medication ?Instructions ?Recorded ?Confirmed Unknown [No Known Home Meds] 09/15/19 11/09/24 Allergies Allergy/AdvReac Type Severity Reaction Status Date / Time No Known Allergies Allergy Verified 11/09/24 09:34 General Stated Complaint: SutureRem JOSE: 5 Course Vital Signs Vital signs: Vital Signs Temperature 37.0 C 11/09/24 09:31 Pulse 73 11/09/24 09:31 Respiratory Rate 14 11/09/24 09:31 Blood Pressure 123/76 11/09/24 09:31 Pulse Oximetry 98 11/09/24 09:31 Temperature 37.0 C 11/09/24 09:31 Temperature Source Oral 11/09/24 09:31 Pulse 73 11/09/24 09:31 Respiratory Rate 14 11/09/24 09:31 Respiratory Effort Normal, Non-Labored 11/09/24 09:32 Blood Pressure 123/76 11/09/24 09:31 Blood Pressure Position Sitting 11/09/24 09:31 Pulse Oximetry 98 11/09/24 09:31 Oxygen Delivery Method Room Air 11/09/24 09:31 Oxygen Flow Rate 0 11/09/24 09:31 Pain Level 0 11/09/24 09:31 Medical Decision Making Quality:SDOH Health Related Social Needs: No Data to Display PFSH All Active Problems (Updated 11/09/24 @ 09:45 by Francisco Lei MD) Encounter for removal of sutures (Acute) Laceration of left palm (Acute) Acute shoulder pain (Acute) Bilateral knee pain (Acute) Abrasion (Acute) Developmental delay (Acute) iep Routine child health exam (Acute 03/24/13) Normal weight, pediatric, BMI 5th to 84th percentile for age (Acute 06/25/16) Attention deficit hyperactivity disorder (Acute 03/24/13) has IEP Medical History (Updated 11/09/24 @ 09:45 by Francisco Lei MD) ADHD (attention deficit hyperactivity disorder) Surgical History Circumcision Family History Mother Mental disorder Asthma Father Diabetes Sister No problems noted. Sister No problems noted. Sister No problems noted. Social History Smoking/Tobacco Use Status: Current every day Tobacco Type: e-cigarettes Second Hand Exposure: Yes Smoking risk assessment performed?: Yes Alcohol Intake: never Drug use: Occasionally Substance use type: marijuana Caregiver/Support person: Yes (Father) Household members: family Housing: other Education Level: high school Details: Senior--[employer] Do you need help understanding health information?: Often Pets and animals: Yes Pets and animals: cat(s) and dog(s) Sexually active: No Do you think of yourself as: straight/heterosexual Current gender identity: male How often do you talk on the phone with friends or family?: three or more times per week How often do you get together with friends or relatives?: once per week How often do you attend jain or adventism services?: decline to answer Do you belong to any clubs or organized social groups?: no Panel score (0-1 are the most socially isolated patients): 1 What type of physical activity do you participate in: weight lifting Duration: 15-30 minutes/day Frequency: 1-2 times per week Meg/Buddhism: No preference Special meg needs: No Seatbelt use: always Helmet use: No Drive intox or ride w/intox utility driver: No Working smoke detector in home: Yes Fire extinguisher in home: Yes Carbon monox detector in home: Yes Do you feel safe at home: Yes Do you feel safe in your relationship?: Yes
[2024-11-09 09:54] VITALS: BP 130/82; PULSE 81; RESP 20; TEMP 36.3; O2SAT 97
== END 2024-11-09 09:54 | disposition home or self-care (01) ==
PROVIDERS: Emergency Provider Emergency Medicine; PCP Nurse Practitioner Family
DX: S61.412D Laceration without foreign body of left hand, subsequent encounter (principal); X58.XXXD Exposure to other specified factors, subsequent encounter

== ENCOUNTER 2025-06-28 16:11 | Emergency (ER) | payer OTHER, SELFPAY ==
[2025-06-28 16:15] VITALS: BP 142/84; PULSE 75; RESP 16; TEMP 36.6; O2SAT 98
--- NOTE | 2025-06-28 18:52 | ED.GENADUL_ITS ---
Discharge Plan Disposition Patient Disposition: Home Condition: Improving Discharge Details Clinical Impression: Back pain Primary Care Provider: Bob Valencia ED Provider: Kathe Hunt Home Meds and New Rx's Prescriptions: No Action No Known Home Meds Discharge Instructions Instructions: Low Back Pain ED Additional Instructions: Take Tylenol and/or Motrin as needed for pain. Avoid heavy lifting for the next 3 days. Follow-up with your primary care doctor. Stand Alone Forms: Work Release Referrals: Bob Valencia, [facility] [employer] [Primary Care Provider, Medicine] Clinical Impression: Back pain Discharge Data Discharge Physician: Kathe Hunt [facility] General Date/Time Provider Initiated Documentation: 06/28/25 16:23 . HPI Narrative: 24-year-old male presents for evaluation of back pain. 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 Today he was putting something heavy on top of a pallet when he had pain in his right back that then went down his left leg. He took some Motrin prior to ED arrival. At time of my evaluation he does not have any further pain. He does not have any numbness or tingling to his extremities. No weakness in his extremities. No loss of bowel or bladder function. No saddle anesthesia. Related Data Home Medications ?Medication ?Instructions ?Recorded ?Confirmed Unknown [No Known Home Meds] 09/15/19 0 06/28/25 Allergies Allergy/AdvReac Type Severity Reaction Status Date / Time No Known Allergies Allergy Verified 06/28/25 16:18 General Stated Complaint: Nk/Back Pain JOSE: 4 Review of Systems Narrative: Remainder of review of systems otherwise negative except for as noted in the HPI x 5. Exam Narrative Exam Narrative: General: non-toxic, no respiratory distress, comfortable HEENT: normocephalic, atraumatic, lids and lashes normal, PERRL, EOMI, anicteric sclera, no conjunctival injection, moist oral mucosa Musculoskeletal: full range of motion of arms and legs, no tenderness to palpation. no clubbing, cyanosis, or edema Back exam: no paraspinal tenderness, no mid-line tenderness, normal strength & sensation, negative SLR's, DTR's 2+ bilaterally Neurologic: appropriate for age, strength normal Psych: alert and oriented Skin: no petechiae, no lesions, warm and dry Course Vital Signs Vital signs: Vital Signs Temperature 36.6 C 06/28/25 16:15 Pulse 75 06/28/25 16:15 Respiratory Rate 16 06/28/25 16:15 Blood Pressure 142/84 H 06/28/25 16:15 Pulse Oximetry 98 06/28/25 16:15 Temperature 36.6 C 06/28/25 16:15 Temperature Source Oral 06/28/25 16:15 Pulse 75 06/28/25 16:15 Respiratory Rate 16 06/28/25 16:15 Blood Pressure 142/84 H 06/28/25 16:15 Blood Pressure Position Sitting 06/28/25 16:15 Pulse Oximetry 98 06/28/25 16:15 Oxygen Delivery Method Room Air 06/28/25 16:15 Oxygen Flow Rate 0 06/28/25 16:15 Pain Level 5 06/28/25 16:15 Medical Decision Making 24-year-old male presents for evaluation of back pain after lifting something heavy today. At time my evaluation he no longer has any pain. Patient has no saddle anesthesia, no loss of bowel or bladder control. Patient's history and physical exam are consistent with musculoskeletal back pain. There are no red flags for cauda equina syndrome or infection. No radicular symptoms. We will treat with Tylenol and/or Motrin at home as needed. Patient is to follow up closely with primary care or return to the ED for any worsening symptoms. PFSH All Active Problems Back pain (Acute) Acute shoulder pain (Acute) Bilateral knee pain (Acute) Abrasion (Acute) Developmental delay (Acute) iep Routine child health exam (Acute 03/24/13) Normal weight, pediatric, BMI 5th to 84th percentile for age (Acute 06/25/16) Attention deficit hyperactivity disorder (Acute 03/24/13) has IEP Medical History ADHD (attention deficit hyperactivity disorder) Surgical History Circumcision Family History Mother Mental disorder Asthma Father Diabetes Sister No problems noted. Sister No problems noted. Sister No problems noted. Social History Smoking/Tobacco Use Status: Current every day Tobacco Type: e-cigarettes Second Hand Exposure: Yes Smoking risk assessment performed?: Yes Alcohol Intake: never Drug use: Occasionally Substance use type: marijuana Caregiver/Support person: Yes (Father) Household members: family Housing: other Education Level: high school Details: Senior--[employer] Do you need help understanding health information?: Often Pets and animals: Yes Pets and animals: cat(s) and dog(s) Sexually active: No Do you think of yourself as: straight/heterosexual Current gender identity: male How often do you talk on the phone with friends or family?: three or more times per week How often do you get together with friends or relatives?: once per week How often do you attend mormonism or restoration services?: decline to answer Do you belong to any clubs or organized social groups?: no Panel score (0-1 are the most socially isolated patients): 1 What type of physical activity do you participate in: weight lifting Duration: 15-30 minutes/day Frequency: 1-2 times per week Meg/Confucianism: No preference Special meg needs: No Seatbelt use: always Helmet use: No Drive intox or ride w/intox xm1 tank driver: No Working smoke detector in home: Yes Fire extinguisher in home: Yes Carbon monox detector in home: Yes Do you feel safe at home: Yes Do you feel safe in your relationship?: Yes
[2025-06-28 19:24] VITALS: BP 110/80; PULSE 72; RESP 18; O2SAT 99
== END 2025-06-28 19:24 | disposition home or self-care (01) ==
PROVIDERS: Emergency Provider Emergency Medicine Emergency Medical Services; PCP Nurse Practitioner Family
DX: M54.9 Dorsalgia, unspecified (principal); Y99.0 Civilian activity done for income or pay
CPT/HCPCS: 99283; 99282